=== PATIENT | male | born 1960 | race Caucasian/White ===

== ENCOUNTER 2018-03-11 09:56 | Inpatient (IN) ==
[2018-03-05 11:18] LABS: Appearance,Urine CLEAR; Bacteria,Urine 0 /hpf (0); Bilirubin,Urine NEG (NEG); Color,Urine YELLOW; Glucose,Urine (UA) NEGATIVE (NEG); Leukocyte Esterase,Urine 25 /uL (NEG); Mucus,Urine FEW /hpf (0); Protein,Urine NEG (NEG); Specific Gravity,Urine 1.018 (1.000-1.035); Urine Blood NEG mg/dL (<0.03); Urine RBC 0 /hpf (0-1); Urine Squamous Epithelial Cell 0 /hpf (0-4); Urine WBC 4 /hpf (0-4); Urobilinogen,Urine NEG (NEG)
[2018-03-05 12:07] LABS: Basophils # (Auto) 0 K/mcL (0.0-0.3); Basophils % (Auto) 0.2 % (0.0-2.0); Eosinophils # (Auto) 0 K/mcL (0.0-0.7); Eosinophils % (Auto) 0.2 % (0.0-7.0); Granulocytes % (Auto) 78.6 % (38.0-78.0); Lymphocytes # (Auto) 1.5 K/mcL (1.5-4.8); Lymphocytes % (Auto) 13.7 % (15.5-49.0); Mean Cell Volume 99.1 fL (80.0-100.0); Mean Corpuscular HGB Conc 33.9 g/dL (31.0-36.0); Mean Corpuscular Hemoglobin 33.6 pg (26.0-34.0); Monocytes # (Auto) 0.8 K/mcL (0.1-0.9); Monocytes % (Auto) 7.3 % (1.0-12.0); Platelet Count 291 K/mcL (140-440); RBC 5.25 M/mcL (4.50-5.90); Red Cell Distribution Width 14.1 % (11.5-14.5)
[2018-03-05 12:09] LABS: Blood Urea Nitrogen 10 mg/dl (6-20)
[~2018-03-11 09:56] MED LIST: ACETAMINOPHEN 500 MG TABLET PO SCH; CELECOXIB 200 MG CAPSULE PO SCH; PREGABALIN 75 MG CAPSULE PO SCH; ceFAZolin 1 GM VIAL IV SCH; oxyCODONE 10 MG TAB.ER.12H PO SCH
[2018-03-11] MEDS ORDERED: KETAMINE 100 MG/ML ML IV ONE (14:00)
[2018-03-11] MEDS ORDERED: HYDROmorphone 2 MG/ML VIAL IV ONE (14:00)
[2018-03-11] MEDS ORDERED: PROPOFOL 200 MG/20 ML VIAL IV ONE (14:00)
[2018-03-11] MEDS ORDERED: GLYCOPYRROLATE 0.2 MG/ML VIAL IV ONE (14:00)
[2018-03-11] MEDS ORDERED: MIDAZOLAM 2 MG/2 ML VIAL IV ONE (14:00)
[2018-03-11] MEDS ORDERED: ROPIVACAINE HCL/PF 30 ML VIAL IJ ONE (14:00)
[2018-03-11] MEDS ORDERED: DEXAMETHASONE 10 MG/ML VIAL IV ONE (14:00)
[2018-03-11] MEDS ORDERED: LIDOCAINE HCL/PF 100 MG/5 ML SYRINGE IV ONE (14:00)
[2018-03-11] MEDS ORDERED: GENTAMICIN SULFATE 800 MG/20 ML VIAL IR ONE (14:39)
[2018-03-11] MEDS ORDERED: ONDANSETRON ODT 4 MG TABLET SL PRN (15:07)
[2018-03-11] MEDS ORDERED: BISACODYL 10 MG SUPP.RECT PR PRN (15:07)
[2018-03-11] MEDS ORDERED: HYDROmorphone 2 MG/ML VIAL IV PRN (15:07)
[2018-03-11] MEDS ORDERED: FLEETS ADULT ENEMA PR PRN (15:07)
[2018-03-11] MEDS ORDERED: TRANEXAMIC ACID 1,000 MG/10 ML VIAL IV ONE (15:07)
[2018-03-11] MEDS ORDERED: KETOROLAC 15 MG/ML VIAL IV PRN (15:07)
[2018-03-11] MEDS ORDERED: BENZOCAINE/MENTHOL 1 LOZENGE PO PRN (15:07)
[2018-03-11] MEDS ORDERED: POLYETHYLENE GLYCOL 3350 17 GM PACKET PO PRN (15:07)
[2018-03-11] MEDS ORDERED: TEMAZEPAM 15 MG CAPSULE PO PRN (15:07)
[2018-03-11] MEDS ORDERED: ONDANSETRON 4 MG/2 ML VIAL IV PRN (15:07)
[2018-03-11] MEDS ORDERED: MAGNESIUM HYDROXIDE 30 ML ORAL.SUSP PO PRN (15:07)
[2018-03-11] MEDS ORDERED: ACETAMINOPHEN 325 MG TABLET PO PRN (15:07)
[2018-03-11] MEDS ORDERED: OMEPRAZOLE 20 MG CAPSULE PO PRN (15:11)
[2018-03-11] MEDS ORDERED: ALBUTEROL SULFATE 1 PUFF INHALER INH PRN (15:11)
--- NOTE | 2018-03-11 15:22 | Brief Operative Note ---
Date of procedure: 03/11/18 Pre-op diagnosis: left shoulder djd and bicep tear Post-op diagnosis: same Procedure: left shoulder reverse tsa and bicep tenodesis Grafts/Implants: Yes Anesthesia: FELIZ Surgeon: Ludwig Fernandez Capsule Machine Operator: Mark Conte Estimated blood loss (cc): 40 Specimens Removed/Pathology: none sent Condition: stable Disposition: PACU
--- NOTE | 2018-03-11 15:31 | Operative Note ---
DATE OF OPERATION: 03/11/2018 PREOPERATIVE DIAGNOSES: Left shoulder rotator cuff arthropathy and biceps tendinopathy and severe arthritis. POSTOPERATIVE DIAGNOSES: Left shoulder rotator cuff arthropathy and biceps tendinopathy and severe arthritis. PROCEDURE: Left reverse total shoulder and biceps tenodesis. SURGEON: Ludwig Fernandez M.D. PIPE FITTER SOFT COPPER: Mark Conte PA-C. ANESTHESIA: General LMA anesthesia. COMPLICATIONS: None. DESCRIPTION OF PROCEDURE: The patient was brought to the operating room and put to sleep with general LMA anesthesia. Once asleep, the patient had the left shoulder sterilely prepped and draped in the usual sterile fashion after an appropriate timeout and confirming the operative site. Once this was done, we then placed Ioban over the skin and made a deltopectoral approach through a prior scar on the shoulder. We identified the subscap which was released and identified the joint showing severe arthritis within the glenohumeral joint. I carried the dissection on the inferior portion of the humeral head and dislocated the humerus from the glenoid. At this point, we made the cut at 130 degrees with 20 degrees of retroversion using the guide. Once done, we then placed a metal plate over the bony surface to protect it in the operative field. Once this was done, I then exposed the glenoid, 360 degree capsular release, and release of the remnants of the biceps tendon and removal of the labrum. We placed a pin hole centrally on the inferior portion of the glenoid. This was reamed up to the size of 36. All bony spurs were removed and released the capsule medially 1 cm, taking care to avoid the axillary nerve. We irrigated thoroughly and then placed the glenosphere on the surface with four screws with a central screw being a 28 mm screw. The other screws measured 32, 36 and 36 with good purchase achieved, good compression, and then we placed a 36 mm glenosphere with 2 mm of the eccentricity, 2 mm of offset. With this, we then broached up on the humerus to a size 11 stem. Once this was done, I then broached to a size 11, trialed the size 11 with a standard poly. This was a little tight. We had to countersink the stem slightly, and this became appropriately balanced. We then implanted the final stem with a size 11 stem with a standard thickness poly. Once this was done, I then placed a small amount of cement on the tip of the stem to help secure the stem, and at this point we then reduced the shoulder with a standard thickness poly. Tension was perfectly balanced. We then took the shoulder through forward flexion, abduction, internal and external rotation at 90 degrees. We irrigated thoroughly and then closed and irrigated the wound. I then repaired the biceps tendon with a #1 FiberWire. Multiple stitches were placed subpec region and along the bicipital groove. We irrigated thoroughly. The remnants of the biceps tendon were released. We irrigated the wound thoroughly and then closed the fascial layer with 0 Vicryl, closed the skin with 2-0 Vicryl and an adhesive closure. The patient tolerated this well. Sterile bandage was applied. A DonJoy sling was fitted and given to the patient. [facility]:arian Job ID: [id number] Doc ID: [id number] Ludwig Fernandez MD
[2018-03-11] MEDS ORDERED: MEPERIDINE 25 MG/ML SYRINGE IV PRN (15:40)
[2018-03-11] MEDS ORDERED: METHOCARBAMOL 1,000 MG/10 ML VIAL IV PRN (15:40)
[2018-03-11] MEDS ORDERED: IPRATROPIUM/ALBUTEROL 3 ML AMPUL.NEB NEB PRN (15:40)
[2018-03-11] MEDS ORDERED: PROMETHAZINE 25 MG/ML VIAL IV PRN (15:40)
[2018-03-11] MEDS ORDERED: LACTATED RINGERS 1,000 ML IV SCH (15:45)
[2018-03-11] MEDS: fentaNYL 100 MCG/2 ML VIAL IV PRN ×2 (15:51→16:08)
--- NOTE | 2018-03-11 16:09 | XRay Report ---
CLINICAL INFORMATION: Reverse shoulder arthroplasty. Postsurgical follow-up TECHNIQUE: AP and Y views of the left shoulder COMPARISON: None. FINDINGS: Status post left reverse shoulder arthroplasty. Normal anatomic alignment. There is postsurgical soft tissue gas. IMPRESSION: Status post reverse left shoulder arthroplasty Interpreted and Authenticated by: Carlos Mueller 03/11/18
[2018-03-11] MEDS: 0.45 % SODIUM CHLORIDE 1,000 ML IV SCH (16:40)
[2018-03-11] MEDS: HYDROcodone/APAP 10/325MG TABLET PO PRN ×2 (16:46→20:28)
[2018-03-11] MEDS: DOCUSATE SODIUM 100 MG CAPSULE PO SCH (20:28)
[2018-03-11] MEDS ORDERED: SENNOSIDES 1 TABLET PO SCH (21:00)
[2018-03-11] MEDS: ceFAZolin 1 GM VIAL IV SCH (21:49)
[2018-03-11] MEDS: 0.9 % SODIUM CHLORIDE 10 ML SYRINGE IV SCH (21:50)
[2018-03-12] MEDS: HYDROcodone/APAP 10/325MG TABLET PO PRN ×3 (00:28→08:45)
[2018-03-12] MEDS: 0.45 % SODIUM CHLORIDE 1,000 ML IV SCH ×2 (01:25→13:19)
[2018-03-12] MEDS: ceFAZolin 1 GM VIAL IV SCH (05:39)
[2018-03-12] MEDS: 0.9 % SODIUM CHLORIDE 10 ML SYRINGE IV SCH (05:49)
--- NOTE | 2018-03-12 07:34 | Orthopedic Progress Note ---
Subjective Patient information: Note initiated : 03/12/18 at 7:33 am Service Date, if different from initiated Date: [] Patient: Joseph Pina 57 y/o M admitted on 03/11/18 for Left Reverse Total Shoulder Arthroplasty with . Chief Complaint: [Pt is stable this morning on post operative day 1 without any significant concerns or complaints. Patients vital signs have remained stable. Patients dressing is dry and is grossly instact from a neurovascular and motor standpoint. Patients 10 point ROS is otherwise negative. ] Objective Vital signs: Vital Signs Temp Pulse Resp BP Pulse Ox 03/12/18 04:00 98.2 F 69 20 145/88 94 03/12/18 00:00 97.8 F 75 20 134/84 94 03/11/18 19:56 97.5 F 73 20 121/83 93 03/11/18 19:51 16 93 03/11/18 19:40 93 03/11/18 17:45 73 128/74 95 03/11/18 17:28 152/95 98 03/11/18 17:13 158/92 98 03/11/18 16:58 130/87 98 03/11/18 16:43 148/99 98 03/11/18 16:08 96.7 F L 58 L 15 144/99 98 03/11/18 15:53 96.9 F L 68 17 148/96 96 03/11/18 15:38 97.5 F 65 18 126/82 92 03/11/18 15:33 74 20 118/79 93 03/11/18 15:28 79 22 134/73 95 03/11/18 15:23 97.8 F 82 10 L 124/75 98 03/11/18 10:34 98.1 F 18 115/80 95 Intake and Output 03/11/18 03/12/18 03/12/18 21:59 05:59 13:59 Intake Total 2099 / 2099 975 / 975 Output Total 275 / 275 1025 / 1025 Balance 1825 / 5 -50 / -50 Intake: IV 875 / 875 Sodium Chloride 0.45% 1,000 ml 875 / 875 @ 100 mls/hr IV .Q10H [facility] Rx#: [id number] Oral 800 / 800 100 / 100 IV - Manual Only 1300 / 1300 Output: Void Amount 275 / 275 1025 / 1025 Other: Weight 186 lb Intake & Output: Intake & Output 03/11/18 03/12/18 03/12/18 21:59 05:59 13:59 Intake Total 2100 / 2100 975 / 975 Output Total 275 / 275 1025 / 1025 Balance 1825 / 1825 -50 / -50 Weight 186 lb Intake: IV 875 / 875 Sodium Chloride 0.45% 1,000 ml 875 / 875 @ 100 mls/hr IV .Q10H [facility] Rx#: [id number] Oral 800 / 800 100 / 100 IV - Manual Only 1300 / 1300 Output: Void Amount 275 / 275 1025 / 1025 Incision: Yes healing Incision clean and dry: Yes Dressing: Yes clean, Yes dry Weight bearing status: full Neurological exam IM: Yes motor sensory intact, Yes neurovascular intact Extremities exam IM: Yes neurovascular intact - Labs CBC & BMP: 03/05/18 09:38 03/05/18 09:38 Labs: Orthopedic Labs 03/05/18 09:38 PT 12.2 INR 0.9 APTT 29 03/05/18 09:38 Hgb 17.6 H Hct 52.0 Assessment and Plan (1) History of reverse total replacement of left shoulder joint The patient has been educated regarding dressing care, Physical Therapy recommendations, home exercises, restrictions, and follow up appointments. The patient has had all necessary DME prescribed. The patient has remained relatively stable during their hospital course. Leave Dermabond patch intact until followup Status: Acute
--- NOTE | 2018-03-12 07:36 | Discharge Summary ---
Ortho Discharge - TSA - Patient Instructions Diet: Regular Diet Activity: activity as tolerated, weight bearing as tolerated Total Shoulder Protocol: Leave immobilizer in place except for bathing and ROM. Abduction pillow. Continue to wear sling until seen by physician. [place]man Pendulum : These exercises use momentum produced by your body to move your shoulder joint. Bend your knees and shift your weight to your front leg, then back, allowing your arm to swing in the same directions. Using the same technique, alternately shift your weight between your right and left legs, allowing your arm to swing from side to side. These exercises are also performed in counterclockwise and clockwise circular motions. Typically these exercises are performed several times per day, for a set number repetitions or minutes, such as 20 times in a row or 5 minutes at a time. Dressing Care: May shower in 2 days - Problem Maintenance (1) History of reverse total replacement of left shoulder joint Status: Acute - Follow Up Plan Follow Up Appointments: Mark Conte PA-C [Physician Centrifugal Casting Machine Tender] - 03/26/18 9:20 am Disposition: Home, Self-Care Prognosis: Good Rehab Potential: Good I certify that the patient requires SNF services: No Overall status at discharge: patient is progressing back to baseline - Orders For Discharge Prescriptions: Docusate Sodium [Colace] 100 mg PO BID #60 cap HYDROcodone/APAP 10/325MG [[place] 10-325Mg] 1 - 2 tab PO Q4HP PRN #75 tab PRN Reason: Pain Level 3-6
[2018-03-12] MEDS: DOCUSATE SODIUM 100 MG CAPSULE PO SCH (08:48)
== END 2018-03-12 10:35 | disposition home or self-care (01) | DRG 483 ==
LOC: MEDSUR 09:56
PROVIDERS: ADMIT Orthopaedic Surgery; ATTEND Orthopaedic Surgery